=== PATIENT | female | born 1940 ===

== ENCOUNTER → 2018-06-17 | Outpatient (REF) | payer MEDICARE ==
[2018-06-17 14:25] LABS: THYROID STIMULATING HORMONE 0.887 uIU/ML (0.358-3.740)
[2018-06-17 14:25] LABS: FOLATE 15.1 NG/ML; VITAMIN B12 LEVEL 288 PG/ML
[2018-06-23 00:06] LABS: CERULOPLASMIN 17.7 mg/dL (19.0-39.0); COPPER PLASMA 73 ug/dL (72-166); VITAMIN B1 LEVEL WHOLE BLOOD 172.7 nmol/L (66.5-200.0); VITAMIN E(ALPHA TOCOPHEROL) 8.7 mg/L (9.0-29.0)
== END ==
LOC: M LABNEURO 11:15
DX: E61.0 Copper deficiency (principal); E03.9 Hypothyroidism, unspecified; E53.8 Deficiency of other specified B group vitamins; E51.9 Thiamine deficiency, unspecified
CPT/HCPCS: 82525